=== PATIENT | male | born 1975 | race Caucasian/White ===

== ENCOUNTER 2017-02-12 09:00 | Inpatient (IN) | payer MEDICARE ==
[~2017-02-12] VITALS: Ht 185.4 cm; Wt 81.6 kg
--- NOTE | ~2017-02-12 | DS ---
Unit #: [id number] #: [id number] Patient: REINIER HENDRICKS [id number] [facility] [address] [place] [address] [id number] MR#: [id number] NAME: REINIER HENDRICKS. ROOM: P121 Age: 41 Sex: M Admission Date: 02/12/2017 : 1975 Discharge Date: 02/14/2017 Attending Physician: Lionel Lopez M.D. Primary Care Physician: No Primary Care Physician DISCHARGE SUMMARY REASON FOR ADMISSION The patient is a 41-year-old white male admitted to the [address] [place] [address] unit with recurrence of auditory hallucinations. HOSPITAL COURSE The patient was admitted to the [address] [place] [address] unit and restarted on previously started Risperdal 3 mg at bedtime. The patient reported rapid response to the medication and stated that he had come to the hospital mainly "to get back on my meds." By 02/14/2017 the patient was in bright spirits and appeared to be at or near his rather meager psychiatric baseline, as per his request discharge was ordered. FINAL DIAGNOSES Chronic paranoid schizophrenia. DISPOSITION On discharge patient is discharged on the following medications: Risperdal 3 mg at bedtime. DIET AND ACTIVITY No dietary or physical restrictions were placed on the patient at the time of discharge. Follow up will take place through the auspices of community mental health resources. PROGNOSIS The patient's prognosis is considered fair. Dictated by... Lionel Lopez M.D. CB/edison TD: 02/18/2017 10:27 JOB #: [id number] Unit #: [id number] #: [id number] Patient: REINIER HENDRICKS DISCHARGE SUMMARY Page 1 of 1 X Lionel Lopez MD X DISCHARGE SUMMARY
--- NOTE | ~2017-02-12 | PN ---
Unit #: [id number] #: [id number] Patient: REINIER HENDRICKS [id number] [facility] [address] [place] [address] [id number] I MR#: [id number] NAME: REINIER HENDRICKS ROOM: P121 Age: 41 Sex: M Admission Date: 02/12/2017 : 1975 Attending Physician: Lionel Lopez M.D. Admitting Physician: Lionel Lopez M.D. Primary Care Physician: Primary Care Physician Anabell HAGER PROGRESS NOTES DATE 02/13/2017 DISCUSSION The patient appears somewhat improved with reinitiation of medications. He reports that he has been off medications for sometime, and he had come to the hospital for reinitiation of pharmacotherapy. Should he sustain progress, discharge should take place possibly as early as tomorrow as the patient appears to be approaching his psychiatric baseline. Dictated by... Lionel Lopez M.D. CB/bzg TD: 02/13/2017 14:12 JOB #: [id number] [facility] PROGRESS NOTES Page 1 of 1 X Lionel Lopez MD PROGRESS NOTE
--- NOTE | ~2017-02-12 | PA ---
Unit #: [id number] #: [id number] Patient: REINIER HENDRICKS [id number] [facility] [address] [place] [address] [id number] I MR#: [id number] NAME: REINIER HENDRICKS. ROOM: 32 Age: 41 Sex: M Admission Date: 02/12/2017 : 1975 Date of Assessment: 02/12/2017 Attending Physician: Lionel Lopez M.D. Admitting Physician: Lionel Lopez M.D. Primary Care Physician: Primary Care Physician No PSYCHIATRIC ASSESSMENT IDENTIFYING INFORMATION The patient is a 41-year-old white male with a history of chronic, recurrent schizophrenia. He is admitted after presenting to [facility] voicing positive suicidal ideation with plan to jump in front of a car. CHIEF COMPLAINT None given. INFORMANT(S) Chart. Patient cannot be aroused for interview. HISTORY OF PRESENT ILLNESS The patient is a 41-year-old male last admitted to the care of this physician in December of 2015. He carries a diagnosis of chronic paranoid schizophrenia and alcohol use though he denies recent alcohol use. The patient reports increasing suicidal ideation. He has been off medications for sometime per report of the chart. He had previously been discharged on Risperdal 3 mg at h.s. When seen today, the patient is abed with a blanket pulled tightly over his head. He cannot be aroused for interview having been up most of the evening. He does admit to abuse of cannabis, but denies abuse of other psychoactive substances. For more complete history of present illness, please refer to previously dictated notes. PAST PSYCHIATRIC HISTORY Reviewed, no changes. PAST MEDICAL HISTORY The patient has a history of seizure disorder but is not presently prescribed any medications and reportedly not had a seizure in several years. MEDICATIONS None. ALLERGIES Zyprexa, aspirin, latex, and Depakote. FAMILY HISTORY Noncontributory. SOCIAL HISTORY Unit #: [id number] #: [id number] Patient: REINIER HENDRICKS The patient has a history of alcohol use disorder but has not reported recent use. He does admit to abuse of cannabis. MENTAL STATUS EXAMINATION Examination at this time reveals the patient to be a disheveled white male. He is covered head to toe with a blanket and cannot be aroused for interview despite multiple efforts to do so. ASSETS AND LIABILITIES The patient's assets are to be assessed. Liabilities: Lack of resources. DIAGNOSTIC IMPRESSION 1. Chronic paranoid schizophrenia. 2. Alcohol use disorder by history. TREATMENT PLAN The patient remains hospitalized for safety and stabilization. We will restart Risperdal 3 mg at h.s., a medication to which the patient has previously responded We will watch for any signs of alcohol withdrawal, and suicide precautions remain in place. ESTIMATED LENGTH OF STAY 3 to 5 days. Dictated by... Lionel Lopez M.D. Daina TD: 02/12/2017 13:33 JOB #: [id number] PSYCHIATRIC ASSESSMENT Page 1 of 1 X Lionel Lopez MD X PSYCHIATRIC ASSESSMENT
--- NOTE | ~2017-02-12 | HP ---
Unit #: [id number] #: [id number] Patient: YOGI HENDRICKS [id number] [place] [address] [id number] I MR#: [id number] NAME: YOGI HENDRICKS. ROOM: P132 Age: 41 Sex: M Admission Date: 02/12/2017 : 1975 Attending Physician: Lionel Lopez M.D. Admitting Physician: Lionel Lopez M.D. Primary Care Physician: Primary Care Physician No HISTORY AND PHYSICAL HISTORY OF PRESENT ILLNESS Yogi is a 41 year old admitted to [address] [place] [address] with depression and verbalizing wanting to hurt himself. He is a poor historian so his history is taken from his chart. He has had numerous admissions to this facility for the same. PAST MEDICAL HISTORY Nothing significant. PAST SURGICAL HISTORY Nothing reported. ALLERGIES Aspirin, Depakote, Zyprexa, latex. SOCIAL HISTORY Smokes 1/2 pack per day. Denies alcohol and illicit drug use. FAMILY HISTORY Medically noncontributory. REVIEW OF SYSTEMS He does not answer questions appropriately. There are no reports of nausea, vomiting or diarrhea. He has had no cough or increased temperature. CURRENT MEDICATIONS 1. Risperdal 3 mg q.h.s. 2. Milk of Magnesia p.r.n. 3. Maalox p.r.n. 4. Tylenol p.r.n. 5. Nicotine patch 7 mg daily. PHYSICAL EXAMINATION GENERAL: Alert, well-nourished, in no apparent distress. VITAL SIGNS: Blood pressure 138/68, heart rate 90, respirations 16, temperature 98.6. WEIGHT: 180. HEIGHT: 6 feet 1 inch. SKIN: Warm and dry without rash or lesion. HEENT: Normocephalic. TMs not viewed. Oral and nasal passages clear. Conjunctivae clear. PERRLA. EOMs intact. NECK: Supple without lymphadenopathy or thyromegaly. Unit #: [id number] #: [id number] Patient: YOGI HENDRICKS HEART: Regular rate and rhythm without murmur. LUNGS: Clear. ABDOMEN: Soft, nontender. : Not done. EXTREMITIES: No evidence of cyanosis, clubbing or edema. Moves all without focal deficit. NEUROLOGICAL: Unable to complete extended exam. He does move all extremities without focal deficit. Hand fingerprint clerk is equal and gait is normal. IMPRESSION Psychiatric admission. RECOMMENDATIONS PSYCHIATRIC: Per psychiatrist. MEDICAL: See no contraindication to participate in facility's activities. MEDICAL PROGNOSIS Good. MEDICAL CONDITION Stable. Dictated by... Angelica Meneses P.A.-C. for Chela Metz/hamzah TD: 02/12/2017 18:08 JOB #: [id number] HISTORY AND PHYSICAL Page 1 of 1 X Angelica Meneses HISTORY AND PHYSICAL
== END 2017-02-14 16:45 | disposition home or self-care (01) | DRG 885 ==
LOC: P1S 11:43
DX: F20.0 Paranoid schizophrenia (principal); F10.20 Alcohol dependence, uncomplicated; F17.210 Nicotine dependence, cigarettes, uncomplicated